=== PATIENT | female | born 2000 | race Caucasian/White ===

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

== ENCOUNTER 2021-04-16 05:39 | Emergency (ER) | payer MEDICAID ==
[~2021-04-16] VITALS: Ht 157.4 cm; Wt 45.4 kg
[~2021-04-16 05:39] MED LIST: CEFUROXIME AXE500 MG PO; NAPROSYN500 MG PO
[2021-04-16 06:15] LABS: BASO # 0.1 10*3/uL (0.0-0.1); BASO % 0.7 % (0.0-1.0); EOS % 0.4 % (1.0-4.0); HEMATOCRIT 39.8 % (37.0-47.0); LYMPH # 1.8 10*3/uL (1.3-4.4); LYMPH % 19.1 % (27.0-41.0); MEAN CORPUSCULAR HGB 28.7 pg (27.0-31.0); MEAN CORPUSCULAR HGB CONC 31.9 g/dl (33.0-37.0); MEAN PLATELET VOLUME 10.6 fl (9.6-12.3); MONO # 0.4 10*3/uL (0.1-1.0); MONO % 4.6 % (3.0-9.0); NEUT % 74.9 % (47.0-73.0); PLATELET COUNT AUTOMATED 356 10*3/uL (130-400); RED BLOOD COUNT 4.42 10*6/uL (4.10-5.10); WHITE BLOOD COUNT 9.4 10*3/uL (4.8-10.8)
[2021-04-16 06:20] LABS: ALBUMIN 4.3 gm/dl (3.1-4.5); ALKALINE PHOSPHATASE 85 U/L (45-117); BUN 14 mg/dl (7-24); CHLORIDE 100 mmol/L (98-107); CREATININE 1.07 mg/dL (0.55-1.02); POTASSIUM 4.5 mmol/L (3.5-5.1); SGOT/AST 11 IU/L (3-35); SGPT/ALT 22 U/L (12-78); SODIUM 133 mmol/L (136-145); TOTAL PROTEIN 8.3 gm/dL (6.4-8.2)
[2021-04-16 11:04] LABS: BUN 12 mg/dl (7-24); CHLORIDE 109 mmol/L (98-107); CREATININE 0.77 mg/dL (0.55-1.02); POTASSIUM 4.5 mmol/L (3.5-5.1); SODIUM 137 mmol/L (136-145)
[2021-04-16] MEDS ORDERED: ZOFRAN4 MG PO (11:24)
== END 2021-04-16 11:35 | disposition home or self-care (01) ==
LOC: ED 05:39
PROVIDERS: Internal Medicine
DX: R73.9 Hyperglycemia, unspecified (principal); Z91.040 Latex allergy status

== ENCOUNTER 2021-05-26 10:03 | Emergency (ER) | payer MEDICAID ==
[~2021-05-26] VITALS: Ht 157.4 cm; Wt 43.1 kg
[~2021-05-26 10:03] MED LIST changes: +ZOFRAN4 MG PO
[2021-05-26 10:38] LABS: BASO % 0.3 % (0.0-1.0); EOS # 0.1 10*3/uL (0.0-0.4); EOS % 0.6 % (1.0-4.0); HEMATOCRIT 40.9 % (37.0-47.0); LYMPH # 1.6 10*3/uL (1.3-4.4); LYMPH % 12.7 % (27.0-41.0); MEAN CELL VOLUME 89.1 fl (81.0-99.0); MEAN CORPUSCULAR HGB CONC 32.5 g/dl (33.0-37.0); MEAN PLATELET VOLUME 10.9 fl (9.6-12.3); MONO # 0.7 10*3/uL (0.1-1.0); MONO % 5.7 % (3.0-9.0); NEUT # 9.8 10*3/uL (2.3-7.9); NEUT % 80.5 % (47.0-73.0); PLATELET COUNT AUTOMATED 329 10*3/uL (130-400); RED BLOOD COUNT 4.59 10*6/uL (4.10-5.10); WHITE BLOOD COUNT 12.2 10*3/uL (4.8-10.8)
[2021-05-26 11:04] LABS: ALBUMIN 3.9 gm/dl (3.1-4.5); ALKALINE PHOSPHATASE 65 U/L (45-117); BUN 9 mg/dl (7-24); CHLORIDE 103 mmol/L (98-107); LIPASE 64 U/L (73-393); POTASSIUM 3.8 mmol/L (3.5-5.1); SGOT/AST 10 IU/L (3-35); SGPT/ALT 16 U/L (12-78); SODIUM 137 mmol/L (136-145); TOTAL PROTEIN 7.6 gm/dL (6.4-8.2)
== END 2021-05-26 12:53 | disposition home or self-care (01) ==
LOC: ED 10:03
PROVIDERS: Emergency Medicine
DX: R10.2 Pelvic and perineal pain (principal); R11.2 Nausea with vomiting, unspecified; F17.200 Nicotine dependence, unspecified, uncomplicated; E10.9 Type 1 diabetes mellitus without complications

== ENCOUNTER → 2021-05-28 | Outpatient (CLI) | payer MEDICAID ==
[2021-05-28 14:15] LABS: BILIRUBIN Negative (Negative); BLOOD 3+ (Negative); CLARITY Cloudy (Clear); COLOR Yellow (Yellow); GLUCOSE 3+ (Negative); KETONE 3+ (Negative); LEUKO ESTERASE Negative (Negative); NITRITE Negative (Negative); PH 5.5 (4.5-8.0); SPECIFIC GRAVITY >= 1.030 (1.001-1.030); UROBILINOGEN 0.2 E.U./dl (0.0-1.0)
[2021-05-28 14:27] LABS: EPITHELIAL CELLS TNTC
[2021-05-28 14:28] LABS: BACTERIA 2+
[2021-05-28 14:29] LABS: ALBUMIN 4.2 gm/dl (3.1-4.5); BUN 12 mg/dl (7-24); CHLORIDE 103 mmol/L (98-107); CREATININE 0.98 mg/dL (0.55-1.02); SGOT/AST 9 IU/L (3-35); SGPT/ALT 15 U/L (12-78); SODIUM 135 mmol/L (136-145); TRIGLYCERIDES 65 mg/dl (<150)
[2021-05-28 14:30] LABS: ALKALINE PHOSPHATASE 74 U/L (45-117); CHOLESTEROL 165 mg/dL (<200); TOTAL PROTEIN 8.2 gm/dL (6.4-8.2)
[2021-05-28 14:37] LABS: FREE T4 1.37 ng/dl (0.76-1.46); LDL CHOLESTEROL 80 mg/dL (9-159); THYROID STIM HORMONE (HS) 0.961 uIU/ml (0.358-4.75)
== END | disposition home or self-care (01) ==
LOC: LAB 13:23
PROVIDERS: ATTEND Internal Medicine
DX: E10.65 Type 1 diabetes mellitus with hyperglycemia (principal); E78.5 Hyperlipidemia, unspecified; E55.9 Vitamin D deficiency, unspecified; E04.9 Nontoxic goiter, unspecified

== ENCOUNTER 2022-02-18 14:56 | Emergency (ER) | payer MEDICAID ==
[~2022-02-18] VITALS: Wt 46.7 kg
[2022-02-18] MEDS ORDERED: VITAMIN D3125 MCG PO (15:51)
[2022-02-18 15:53] LABS: BILIRUBIN Negative (Negative); BLOOD 2+ (Negative); CLARITY Cloudy (Clear); COLOR Dark Yellow (Yellow); GLUCOSE 1+ (Negative); KETONE 2+ (Negative); LEUKO ESTERASE Trace (Negative); NITRITE Negative (Negative); SPECIFIC GRAVITY >= 1.030 (1.001-1.030)
[2022-02-18 16:05] LABS: BACTERIA 1+; MUCOUS 1+; RBC 21-30 rbc/hpf (0-2); WBC 16-20 wbc/hpf (0-5)
[2022-02-18 16:16] LABS: BASO # 0.1 10*3/uL (0.0-0.1); EOS # 0.2 10*3/uL (0.0-0.4); EOS % 2.5 % (1.0-4.0); HEMATOCRIT 40.5 % (37.0-47.0); LYMPH % 22.2 % (27.0-41.0); MEAN CORPUSCULAR HGB 29.6 pg (27.0-31.0); MEAN CORPUSCULAR HGB CONC 32.8 g/dl (33.0-37.0); MEAN PLATELET VOLUME 10.3 fl (9.6-12.3); MONO # 0.4 10*3/uL (0.1-1.0); MONO % 4.7 % (3.0-9.0); NEUT # 6.1 10*3/uL (2.3-7.9); NEUT % 69.4 % (47.0-73.0); PLATELET COUNT AUTOMATED 434 10*3/uL (130-400); RED CELL DISTRI WIDTH 12.7 % (0-14.5); WHITE BLOOD COUNT 8.9 10*3/uL (4.8-10.8)
[2022-02-18 16:31] LABS: ALKALINE PHOSPHATASE 96 U/L (45-117); BUN 14 mg/dl (7-24); CHLORIDE 105 mmol/L (98-107); CREATININE 0.95 mg/dL (0.55-1.02); LIPASE 112 U/L (73-393); POTASSIUM 4.6 mmol/L (3.5-5.1); SGOT/AST 16 IU/L (3-35); SGPT/ALT 18 U/L (12-78); SODIUM 134 mmol/L (136-145); TOTAL PROTEIN 8.3 gm/dL (6.4-8.2)
[2022-02-18] MEDS ORDERED: OMNICEF300 MG PO (17:40)
== END 2022-02-18 18:04 | disposition home or self-care (01) ==
LOC: ED 14:56
PROVIDERS: Family Medicine
DX: N30.90 Cystitis, unspecified without hematuria (principal); Z79.899 Other long term (current) drug therapy

== ENCOUNTER 2022-03-20 19:03 | Emergency (ER) | payer MEDICAID ==
[~2022-03-20] VITALS: Ht 157.4 cm; Wt 45.4 kg
[~2022-03-20 19:03] MED LIST changes: +OMNICEF300 MG PO; +VITAMIN D3125 MCG PO
[2022-03-20] MEDS ORDERED: NOVOLOG10 ML SC (19:27)
[2022-03-20] MEDS ORDERED: LANTUS SOL100 UNIT/1 SC (19:27)
[2022-03-20 20:09] LABS: BILIRUBIN Negative (Negative); BLOOD 2+ (Negative); CLARITY Clear (Clear); COLOR Yellow (Yellow); GLUCOSE Negative (Negative); KETONE Trace (Negative); LEUKO ESTERASE 2+ (Negative); NITRITE Negative (Negative); PH 5.5 (4.5-8.0); SPECIFIC GRAVITY 1.025 (1.001-1.030)
[2022-03-20 20:18] LABS: BACTERIA 2+; RBC TNTC rbc/hpf (0-2); WBC 21-30 wbc/hpf (0-5)
[2022-03-20 20:19] LABS: CALCIUM OXALATE CRYSTALS Trace
[2022-03-20] MEDS ORDERED: MACROBID100 M1 PO (20:38)
[2022-03-20] MEDS ORDERED: PYRIDIUM200 M1 PO (20:38)
== END 2022-03-20 20:43 | disposition home or self-care (01) ==
LOC: ED 19:03
PROVIDERS: Emergency Medicine
DX: N39.0 Urinary tract infection, site not specified (principal); E11.9 Type 2 diabetes mellitus without complications; Z79.899 Other long term (current) drug therapy; Z79.4 Long term (current) use of insulin

== ENCOUNTER 2022-04-09 00:32 | Emergency (ER) | payer MEDICAID ==
[~2022-04-09] VITALS: Ht 172.7 cm; Wt 45.4 kg
[~2022-04-09 00:32] MED LIST changes: +LANTUS SOL100 UNIT/1 SC; +MACROBID100 M1 PO; +NOVOLOG10 ML SC; +PYRIDIUM200 M1 PO
== END 2022-04-09 02:05 | disposition home or self-care (01) ==
LOC: ED 00:32
DX: L53.8 Other specified erythematous conditions (principal); T78.40XA Allergy, unspecified, initial encounter; Z79.4 Long term (current) use of insulin; Y92.89 Other specified places as the place of occurrence of the external cause

== ENCOUNTER 2022-07-14 01:44 | Emergency (ER) | payer MEDICAID ==
[~2022-07-14] VITALS: Ht 157.4 cm; Wt 45.4 kg
[2022-07-14 02:04] LABS: HEMATOCRIT 34.6 % (37.0-47.0); MEAN CELL VOLUME 86.5 fl (81.0-99.0); MEAN CORPUSCULAR HGB CONC 33.5 g/dl (33.0-37.0); MEAN PLATELET VOLUME 10.4 fl (9.6-12.3); PLATELET COUNT AUTOMATED 363 10*3/uL (130-400); RED CELL DISTRI WIDTH 12.9 % (0-14.5); WHITE BLOOD COUNT 5.7 10*3/uL (4.8-10.8)
[2022-07-14 02:11] LABS: MANUAL DIFF REFLEX YES
[2022-07-14 02:32] LABS: ATYPICAL LYMPHS 3 % (0-0); BASOPHILS 1 % (0-1); PLATELET SUFFICIENCY NORMAL (NORMAL); TOTAL CELLS COUNTED 100 #CELLS
[2022-07-14 02:40] LABS: ALKALINE PHOSPHATASE 68 U/L (46-116); BUN 15 mg/dl (9-23); CHLORIDE 95 mmol/L (98-107); POTASSIUM 4.4 mmol/L (3.4-5.1); TOTAL PROTEIN 6.7 gm/dL (6.0-8.0)
[2022-07-14 02:41] LABS: SGPT/ALT < 7 U/L (10-49)
== END 2022-07-14 05:40 | disposition home or self-care (01) ==
LOC: ED 01:44
PROVIDERS: Emergency Medicine
DX: E10.65 Type 1 diabetes mellitus with hyperglycemia (principal); Z91.018 Allergy to other foods; Z87.891 Personal history of nicotine dependence

== ENCOUNTER 2023-01-15 15:34 | Emergency (ER) | payer MEDICAID ==
[~2023-01-15] VITALS: Ht 157.4 cm; Wt 42.2 kg
[2023-01-15 16:21] LABS: BASO # 0.1 10*3/uL (0.0-0.1); BASO % 0.8 % (0.0-1.0); EOS # 0.2 10*3/uL (0.0-0.4); HEMATOCRIT 40.3 % (37.0-47.0); LYMPH # 2.1 10*3/uL (1.3-4.4); LYMPH % 28.3 % (27.0-41.0); MEAN CELL VOLUME 88.4 fl (81.0-99.0); MEAN CORPUSCULAR HGB 29.2 pg (27.0-31.0); MEAN PLATELET VOLUME 10.3 fl (9.6-12.3); MONO # 0.4 10*3/uL (0.1-1.0); MONO % 5.7 % (3.0-9.0); NEUT # 4.6 10*3/uL (2.3-7.9); NEUT % 63.1 % (47.0-73.0); PLATELET COUNT AUTOMATED 299 10*3/uL (130-400); RED BLOOD COUNT 4.56 10*6/uL (4.10-5.10); RED CELL DISTRI WIDTH 12.8 % (0-14.5); WHITE BLOOD COUNT 7.3 10*3/uL (4.8-10.8)
[2023-01-15 16:30] LABS: ACT PARTIAL THROMBO TIME 23.2 SECONDS (20.0-32.1)
[2023-01-15 16:41] LABS: BILIRUBIN Negative (Negative); BLOOD Negative (Negative); CLARITY Clear (Clear); COLOR Yellow (Yellow); GLUCOSE 3+ (Negative); KETONE Negative (Negative); LEUKO ESTERASE Negative (Negative); NITRITE Negative (Negative); PH 6.5 (4.5-8.0); SPECIFIC GRAVITY >= 1.030 (1.001-1.030); UROBILINOGEN 0.2 E.U./dl (0.0-1.0)
[2023-01-15 16:46] LABS: ALKALINE PHOSPHATASE 74 U/L (46-116); BUN 12 mg/dl (9-23); CHLORIDE 100 mmol/L (98-107); ETHYL ALCOHOL < 3.0 mg/dl (<3); LIPASE 43 U/L (12-53); POTASSIUM 4.2 mmol/L (3.4-5.1); SGPT/ALT 14 U/L (10-49); TOTAL PROTEIN 7.4 gm/dL (6.0-8.0)
[2023-01-15 16:48] LABS: URINE AMPHETAMINES Negative (1000ng/ml); URINE BARBITURATES Negative (200ng/ml); URINE BENZODIAZEPINES Negative (200ng/ml); URINE CANNABINOIDS (THC) Positive (50ng/ml); URINE COCAINE Negative (300ng/ml); URINE METHADONE Negative (300ng/ml); URINE OPIATES Negative (300ng/ml); URINE PHENCYCLIDINE Negative (25ng/ml)
[2023-01-15 16:57] LABS: BACTERIA TRACE; RBC 0-2 rbc/hpf (0-2)
== END 2023-01-15 17:41 | disposition left against medical advice (07) ==
LOC: ED 15:34
PROVIDERS: Internal Medicine
DX: H53.8 Other visual disturbances (principal); E10.9 Type 1 diabetes mellitus without complications; Z88.6 Allergy status to analgesic agent; Z91.018 Allergy to other foods; F12.10 Cannabis abuse, uncomplicated; Z79.899 Other long term (current) drug therapy; Z53.29 Procedure and treatment not carried out because of patient's decision for other reasons

== ENCOUNTER 2024-02-25 17:27 | Emergency (ER) | payer MEDICAID ==
[~2024-02-25] VITALS: Ht 157.4 cm; Wt 45.4 kg
[2024-02-25 19:09] LABS: BASO # 0.1 10*3/uL (0.0-0.1); EOS # 0.2 10*3/uL (0.0-0.4); EOS % 2.9 % (1.0-4.0); HEMATOCRIT 35.2 % (37.0-47.0); LYMPH # 1.6 10*3/uL (1.3-4.4); LYMPH % 26.3 % (27.0-41.0); MEAN CELL VOLUME 94.4 fl (81.0-99.0); MEAN CORPUSCULAR HGB 30.6 pg (27.0-31.0); MEAN CORPUSCULAR HGB CONC 32.4 g/dl (33.0-37.0); MEAN PLATELET VOLUME 9.8 fl (9.6-12.3); MONO # 0.8 10*3/uL (0.1-1.0); MONO % 12.8 % (3.0-9.0); NEUT # 3.4 10*3/uL (2.3-7.9); NEUT % 56.8 % (47.0-73.0); PLATELET COUNT AUTOMATED 269 10*3/uL (130-400); RED BLOOD COUNT 3.73 10*6/uL (4.10-5.10); RED CELL DISTRI WIDTH 13.2 % (0-14.5); WHITE BLOOD COUNT 5.9 10*3/uL (4.8-10.8)
[2024-02-25 19:10] LABS: VENOUS BLOOD GAS O2 SAT 89.6 % (60.0-85.0)
[2024-02-25 19:28] LABS: BUN 9 mg/dl (9-23); CHLORIDE 97 mmol/L (98-107); POTASSIUM 4.3 mmol/L (3.4-5.1)
[2024-02-25] MEDS ORDERED: SODIUM CHLORIDE 0.9% 1,000 ML IV ONE (20:05)
== END 2024-02-25 21:14 | disposition home or self-care (01) ==
LOC: ED 17:27
PROVIDERS: Nurse Practitioner
DX: B34.9 Viral infection, unspecified (principal); Z20.822 Contact with and (suspected) exposure to COVID-19; F12.10 Cannabis abuse, uncomplicated; E10.9 Type 1 diabetes mellitus without complications; Z88.6 Allergy status to analgesic agent; Z91.018 Allergy to other foods

== ENCOUNTER 2024-05-25 13:09 | Inpatient (IN) | payer SELFPAY ==
[2024-05-25] VITALS: BP 108/64
[~2024-05-25] VITALS: Ht 157.4 cm; Wt 41.0 kg
[2024-05-25 13:24] VITALS: BP 134/92
[2024-05-25] MEDS ORDERED: SODIUM CHLORIDE 0.9% 1,000 ML IV ONE ×2 (13:30→15:30)
[2024-05-25 13:35] LABS: BASO # 0.1 10*3/uL (0.0-0.1); BASO % 0.4 % (0.0-1.0); EOS % 0.3 % (1.0-4.0); HEMATOCRIT 41.5 % (37.0-47.0); MEAN CELL VOLUME 96.7 fl (81.0-99.0); MEAN CORPUSCULAR HGB 31.2 pg (27.0-31.0); MEAN CORPUSCULAR HGB CONC 32.3 g/dl (33.0-37.0); MONO # 0.8 10*3/uL (0.1-1.0); MONO % 6.2 % (3.0-9.0); NEUT % 87.9 % (47.0-73.0); PLATELET COUNT AUTOMATED 363 10*3/uL (130-400); RED BLOOD COUNT 4.29 10*6/uL (4.10-5.10); RED CELL DISTRI WIDTH 13.2 % (0-14.5); WHITE BLOOD COUNT 12.5 10*3/uL (4.8-10.8)
[2024-05-25 13:55] LABS: BUN 9 mg/dl (9-23); CHLORIDE 95 mmol/L (98-107); POTASSIUM 3.5 mmol/L (3.4-5.1)
[2024-05-25 14:00] LABS: BILIRUBIN Negative (Negative); BLOOD Negative (Negative); CLARITY Clear (Clear); COLOR Yellow (Yellow); GLUCOSE 3+ (Negative); KETONE 4+ (Negative); LEUKO ESTERASE Negative (Negative); NITRITE Negative (Negative); SPECIFIC GRAVITY >= 1.030 (1.001-1.030); UROBILINOGEN 0.2 E.U./dl (0.0-1.0)
[2024-05-25] MEDS ORDERED: BUSPAR15 MG PO (14:06)
[2024-05-25] MEDS ORDERED: METHYLPHENIDATE10 M1 PO (14:06)
[2024-05-25] MEDS ORDERED: ARIPIPRAZOLE20 MG PO (14:07)
[2024-05-25 14:13] LABS: HYALINE CAST 0-2; MUCOUS TRACE; RBC 0-2 rbc/hpf (0-2); WBC 0-2 wbc/hpf (0-5)
[2024-05-25] MEDS ORDERED: INSULIN REGULAR, HUMAN 1 UNIT/0.01 ML IV ONE (14:15)
[2024-05-25 14:29] VITALS: BP 106/65
[2024-05-25] MEDS ORDERED: Ondansetron Hydrochloride 4 MG/2 ML VIAL IV PRN (15:25)
[2024-05-25] MEDS ORDERED: BISACODYL 10 MG SUPP R PRN (15:25)
[2024-05-25] MEDS ORDERED: ACETAMINOPHEN 650 MG SUPP R PRN (15:25)
[2024-05-25] MEDS ORDERED: TEMAZEPAM 15 MG CAP PO PRN (15:25)
[2024-05-25] MEDS ORDERED: BISACODYL 5 MG TAB PO PRN (15:25)
[2024-05-25] MEDS ORDERED: ACETAMINOPHEN 325 MG TAB PO PRN (15:25)
[2024-05-25] MEDS ORDERED: MORPHINE Sulfate 2 MG/ML SYR IV PRN (15:25)
[2024-05-25] MEDS ORDERED: LANTUS100 UNIT/1 SC (15:51)
[2024-05-25 15:59] LABS: BUN 7 mg/dl (9-23); CHLORIDE 100 mmol/L (98-107); POTASSIUM 3.3 mmol/L (3.4-5.1)
[2024-05-25] MEDS ORDERED: POTASSIUM CHLORIDE 20 MEQ TAB PO ONE (16:25)
[2024-05-25] MEDS ORDERED: Insulin Glargine, Recombinan 1 UNIT/0.01 ML SC ONE (16:25)
[2024-05-25] MEDS ORDERED: POTASSIUM CHLORIDE 40 MEQ in SODIUM CHLORIDE 0.9% 1,000 ML IV SCH (17:00)
[2024-05-25] MEDS ORDERED: POTASSIUM CHLORIDE IN WATER 100 ML IV SCH (17:00)
[2024-05-25 19:16] LABS: CHLORIDE 106 mmol/L (98-107); POTASSIUM 4.1 mmol/L (3.4-5.1)
[2024-05-25 19:32] LABS: BUN < 5 mg/dl (9-23)
[2024-05-25] MEDS ORDERED: INSULIN REGULAR IN 0.9 % NACL 100 ML IV SCH (19:55)
[2024-05-25 20:00] VITALS: BP 108/53
[2024-05-25 21:50] LABS: CHLORIDE 104 mmol/L (98-107); POTASSIUM 3.8 mmol/L (3.4-5.1)
[2024-05-25 21:51] LABS: BUN < 5 mg/dl (9-23)
[2024-05-25] MEDS ORDERED: INSULIN LISPRO 1 UNIT/0.01 ML SQ SCH (22:00)
[2024-05-25] MEDS ORDERED: DEXTROSE 10 % IN WATER 250 ML IV PRN (22:00)
[2024-05-25] MEDS ORDERED: busPIRone Hydrochloride 15 MG TAB PO SCH (22:00)
[2024-05-25] MEDS ORDERED: Insulin Glargine, Recombinan 1 UNIT/0.01 ML SC SCH (22:05)
[2024-05-26] VITALS: BP 108/64
[2024-05-26 02:58] LABS: CHLORIDE 103 mmol/L (98-107); POTASSIUM 3.8 mmol/L (3.4-5.1)
[2024-05-26 02:59] LABS: BUN < 5 mg/dl (9-23)
[2024-05-26] MEDS ORDERED: POTASSIUM CHLORIDE 20 MEQ TAB PO ONE (03:50)
[2024-05-26 03:58] VITALS: BP 104/72
[2024-05-26 06:36] LABS: BASO % 0.7 % (0.0-1.0); EOS # 0.2 10*3/uL (0.0-0.4); EOS % 3.3 % (1.0-4.0); HEMATOCRIT 35.1 % (37.0-47.0); MEAN CELL VOLUME 94.4 fl (81.0-99.0); MEAN CORPUSCULAR HGB 31.7 pg (27.0-31.0); MEAN CORPUSCULAR HGB CONC 33.6 g/dl (33.0-37.0); MEAN PLATELET VOLUME 9.3 fl (9.6-12.3); MONO # 0.7 10*3/uL (0.1-1.0); MONO % 11.3 % (3.0-9.0); NEUT # 3.4 10*3/uL (2.3-7.9); NEUT % 59.9 % (47.0-73.0); PLATELET COUNT AUTOMATED 282 10*3/uL (130-400); RED BLOOD COUNT 3.72 10*6/uL (4.10-5.10); RED CELL DISTRI WIDTH 13.1 % (0-14.5); WHITE BLOOD COUNT 5.7 10*3/uL (4.8-10.8)
[2024-05-26 06:38] LABS: CHLORIDE 103 mmol/L (98-107); POTASSIUM 3.1 mmol/L (3.4-5.1)
[2024-05-26 06:59] LABS: BUN < 5 mg/dl (9-23)
[2024-05-26] MEDS ORDERED: [UNRECOGNIZED DRUG - OTHER] PO SCH (07:00)
[2024-05-26 07:54] VITALS: BP 96/55
[2024-05-26 08:00] VITALS: BP 96/55
[2024-05-26] MEDS ORDERED: Enoxaparin Sodium 40 MG/0.4 ML SYR SC SCH (10:00)
== END 2024-05-26 10:00 | disposition home or self-care (01) | DRG 637 ==
LOC: ED 13:09 → EDHOLD 14:17 → ICCU 14:17 → EDHOLD 14:18 → ICCU 14:49
PROVIDERS: Internal Medicine; Student in an Organized Health Care Education/Training Program; ADMIT Internal Medicine; ATTEND Internal Medicine
DX: E10.10 Type 1 diabetes mellitus with ketoacidosis without coma (principal); N17.0 Acute kidney failure with tubular necrosis; E87.1 Hypo-osmolality and hyponatremia; R65.10 Systemic inflammatory response syndrome (SIRS) of non-infectious origin without acute organ dysfunction; F25.9 Schizoaffective disorder, unspecified; F41.9 Anxiety disorder, unspecified; R00.0 Tachycardia, unspecified; D72.828 Other elevated white blood cell count; E87.8 Other disorders of electrolyte and fluid balance, not elsewhere classified; F17.290 Nicotine dependence, other tobacco product, uncomplicated; F90.0 Attention-deficit hyperactivity disorder, predominantly inattentive type; F90.9 Attention-deficit hyperactivity disorder, unspecified type; Z88.8 Allergy status to other drugs, medicaments and biological substances; Z79.899 Other long term (current) drug therapy; Z79.01 Long term (current) use of anticoagulants; Z79.2 Long term (current) use of antibiotics; Z79.4 Long term (current) use of insulin; Z71.6 Tobacco abuse counseling